=== PATIENT | male | born 1970 | race Caucasian/White ===

== ENCOUNTER → 2019-04-20 | Outpatient (CLI) | payer OTHER ==
--- NOTE | 2019-04-20 11:28 | MRI ---
Study: MRI of the Right Knee. Indication: SWELLING OF KNEE JOINT Technique: Multiplanar, multi sequence MRI of the right knee was obtained without intravenous contrast. Comparison: None. 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 PCL intact. MCL intact. IT band thickened distally with increased internal PD signal which can be seen with IT band friction. Remaining lateral collateral ligament complex structures intact. Irregular high-grade radial tearing and attenuation posterior horn/root lateral meniscus with additional free edge tearing throughout. Body extruded by 5 mm and markedly irregular. Pronounced volume loss throughout the medial meniscus with areas of free edge and undersurface tearing throughout as well. Patchy areas of grade 2 and 3 chondral thinning and surface irregularity throughout the medial and lateral knee compartments with mild grade 4 chondral loss and cortical remodeling of the posterior weightbearing margins of the lateral femoral condyle. Tendinosis quadriceps tendon insertion and patellar tendon origin without tear. Patella normally located. Patchy grade 3 chondral fibrillation throughout the lateral patellar facet and apex. Small knee effusion. Mild thickening medial patellar plica. No acute fracture. Impression: Pronounced mucoid degeneration ACL without acute tear. Complex tearing and attenuation lateral meniscus as above. Grade 2 and 3 chondrosis of the medial and lateral knee compartments but with grade 4 chondrosis at the posterior weightbearing margin lateral femoral condyle. 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 Small knee effusion. Additional findings as above. Electronically signed by: Jaime Vela MD 04/20/2019 11:26 AM [employer]
== END ==
LOC: MRI 08:00
PROVIDERS: ATTEND Emergency Medicine
DX: M23.611 Other spontaneous disruption of anterior cruciate ligament of right knee (principal); S83.281A Other tear of lateral meniscus, current injury, right knee, initial encounter; M22.40 Chondromalacia patellae, unspecified knee; M25.461 Effusion, right knee